=== PATIENT | female | born 1960 | race Caucasian/White ===

== ENCOUNTER 2024-11-18 16:17 | Emergency (ER) | payer MEDICAID ==
[~2024-11-18] VITALS: Ht 167.6 cm; Wt 68.0 kg
[2024-11-18 16:38] VITALS: O2SAT 99
[2024-11-18] MEDS ORDERED: CEPH500C2 MT (19:18)
[2024-11-18 20:14] VITALS: BP 102/59; PULSE 79; RESP 17; TEMP 36.9; O2SAT 99
== END 2024-11-18 20:14 | disposition home or self-care (01) ==
LOC: ER 16:17
DX: R21 Rash and other nonspecific skin eruption (principal); Z85.828 Personal history of other malignant neoplasm of skin
CPT/HCPCS: 99283